=== PATIENT | male | born 1980 | race Caucasian/White ===

== ENCOUNTER 2017-08-08 14:12 | Observation (INO) ==
[2017-08-08] MEDS ORDERED: ONDANSETRON 4 MG/2 ML VIAL IV PRN (16:59)
[2017-08-08] MEDS ORDERED: ACETAMINOPHEN 325 MG TABLET PO PRN (16:59)
[2017-08-08] MEDS: ASPIRIN EC 81 MG TABLET PO SCH (17:44)
[2017-08-08 18:15] LABS: Magnesium 2.4 MG/DL (1.8-2.4); Thyroid Stimulating Hormone 2.02 uIU/ml (0.358-3.74)
[2017-08-08] MEDS: METOPROLOL TARTRATE 50 MG TABLET PO SCH (20:04)
[2017-08-09 01:48] LABS: Risk Ratio 4.78; VLDL CHOLESTEROL 53.8 MG/DL
[2017-08-09] MEDS: METOPROLOL TARTRATE 50 MG TABLET PO SCH (09:26)
[2017-08-09] MEDS: ASPIRIN EC 81 MG TABLET PO SCH (09:26)
[2017-08-09 12:04] VITALS: BP 114/71
[2017-08-09] MEDS ORDERED: ASCORBIC ACID 500 MG TABLET PO SCH (12:30)
[2017-08-09] MEDS ORDERED: ATORVASTATIN 40 MG TABLET PO SCH (21:00)
== END 2017-08-09 15:12 | disposition home or self-care (01) ==
LOC: INTOOBSV 15:38 → N.TELEN 15:38
PROVIDERS: ADMIT Family Medicine; ATTEND Family Medicine